=== PATIENT | female | born 1980 ===

== ENCOUNTER 2017-02-01 07:23 | Inpatient (IN) ==
[2017-02-01] MEDS: LACTATED RINGERS 1,000 ML IV SCH ×2 (09:30→10:46)
[2017-02-01] MEDS ORDERED: ONDANSETRON 4 MG/2 ML VIAL IV PRN ×2 (09:32→20:23)
[2017-02-01] MEDS ORDERED: fentaNYL 2 MCG/ROPIV 0.2% EPID 150 ML EPIDURAL SCH (09:32)
[2017-02-01] MEDS ORDERED: LACTATED RINGERS 250 ML IV ONE (09:32)
[2017-02-01] MEDS ORDERED: FAMOTIDINE 20 MG/2 ML VIAL IV ONE (09:32)
[2017-02-01] MEDS ORDERED: diphenhydrAMINE 50 MG/1 ML VIAL IV PRN ×2 (09:32)
[2017-02-01] MEDS ORDERED: ePHEDrine 50 MG/ML AMP IV PRN ×2 (09:32)
[2017-02-01] MEDS ORDERED: PROMETHAZINE 25 MG/1 ML VIAL IM ONE (09:32)
[2017-02-01] MEDS ORDERED: CITRIC ACID/SODIUM CITRATE 30 ML UDCUP PO ONE (09:32)
[2017-02-01] MEDS ORDERED: ONDANSETRON 4 MG/2 ML VIAL IV ONE (09:32)
[2017-02-01] MEDS ORDERED: hydrOXYzine HCL 25 MG/1 ML VIAL IM PRN (09:32)
[2017-02-01 09:58] LABS: Basophils % 0.5 % (0.0-0.8); Eosinophils # 0.2 10*3/uL (0.0-0.87); Eosinophils % 2.3 % (0.00-10.9); Hematocrit 30.6 VOL% (35.7-47.0); Hemoglobin 10.7 GM/DL (12.0-16.0); Immature Granulocytes % 0.5 %; Immature Granulocytes Absolute 0.04 #; Lymphocytes # 1.7 10*3/uL (1.4-4.0); Lymphocytes % 22.4 % (21.3-54.2); Mean Corpuscular Hemoglobin 31 PG (27-34); Mean Corpuscular Volume 89.2 FL (87-102); Monocytes # 0.5 10*3/uL (0.11-0.8); Monocytes % 6.9 % (1.7-12.7); Neutrophils % 67.4 % (38.7-73.9); Platelet Count 194 T/CUMM (130-400); Red Blood Count 3.43 MC/CUMM (3.8-5.5); Red Cell Distribution Width 14.5 % (9.3-17.3); White Blood Count 7.4 T/CUMM (4-12)
[2017-02-01] MEDS ORDERED: AMPICILLIN INJ 2,000 MG in SODIUM CHLORIDE 0.9% 100 ML IV ONE (10:00)
[2017-02-01] MEDS ORDERED: OXYTOCIN/LR 20 UNIT/1,000 ML BAG IV SCH (10:00)
[2017-02-01 10:24] LABS: Alanine Aminotransferase 24 U/L (13-56); Albumin 2.4 G/DL (3.4-5.0); Alkaline Phosphatase 176 U/L (45-117); Aspartate Amino Transferase 42 U/L (0-37); Bilirubin,Total < 0.39 MG/DL (0.2-1.0); Blood Urea Nitrogen 12 MG/DL (7-18); Calcium 8.3 MG/DL (8.5-10.1); Glucose 155 MG/DL (74-106); Osmolality,Calculated 277.7 MOS/KG (273-304); Potassium 3.7 MMOL/L (3.5-5.1); Sodium 138 MMOL/L (136-145); Total Protein 6.5 G/DL (6.4-8.3)
[2017-02-01] MEDS ORDERED: AMPICILLIN 2,000 MG VIAL ONE (10:42)
[2017-02-01] MEDS ORDERED: SODIUM CHLORIDE 0.9% 100 ML IV ONE (10:43)
--- NOTE | 2017-02-01 14:18 | OB/GYN History & Physical ---
History of Present Illness Chief complaint: In for complaints of active labor History of present illness: Ms. Lopez is a 36 year old female who is a 2 para 1 living 1 TOMAS is for estimated gestational age of 38 and 2 weeks who presents for complaints of regular uterine contractions. Upon admission the patient was examined and she was 5-6 cm dilated with bulging POW. In light of these findings patient was admitted for management of active labor. The risk and benefits were thoroughly discussed with this patient and significant other, plan of care was discussed with Dr. Cantu and all parties are in agreement with plan. The patient received her care through the [facility] and the [facility], she received routine care throughout. Her course was complicated by diabetes type 2 otherwise she had an uneventful . labs: The patient is O+, RPR is nonreactive, rubella is immune, Pap smear is within normal limits, GC chlamydia cultures negative, hepatitis B negative, HIV negative, GBS culture negative. Home Medications Medication Instructions Recorded Confirmed Type No122/Iron/Folic Acid 1 tablet PO DAILY 12/29/16 02/01/17 History [ Multi Tablet] Insulin NPH [HumuLIN N] 10 unit SUBCUT BID 01/04/17 02/01/17 History Allergies Allergy/AdvReac Type Severity Reaction Status Date / Time No Known Allergies Allergy Verified 01/09/17 16:43 12 point system: reviewed and no additional remarkable complaints except as stated Medical,Surgical,& Family Hx - Medical History Cardio: History of: Hypertension (DAD), Valvular Heart Disease (DAD), Cardiovascular Problems (DAD) Endocrine: History of: Diabetes Mellitus (IDDM) (MOM,DAD) Renal: History of: Renal Problems (DAD) Reproductive: No history of: Ectopic , Complication - Surgical History Thoracic Surgeries: Patient denies;: Kidney (Renal Surgery), Lithotripsy, Nephrectomy, Organ Transplant, Lobectomy Reproductive Surgeries: Surgical HX of;: Gynecologic Surgery (Diagnostic lap for ovarian cyst) Patient denies;: Section, Cystoscopy, Genitourinary Surgery - Family History Family History: Reports;: Family Diabetes, Family Heart Disease, Family Hypertension, Family Stroke Denies;: Family Anesthesia Reaction, Family Cancer, Family Hematology, Family Psychiatric Problems, Additional Family History - Social History Smoking Status: Former smoker Frequency of Alcohol Use: None Type of Drug Use: None Marital Status: Single Lives With:: Significant Other Functional capacity: independent ambulation 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 - Constitutional Vitals: Vital Signs Temp Pulse Resp BP Pulse Ox 02/01/17 12:00 97.7 F 02/01/17 09:32 97.5 F L 87 24 118/65 97 General appearance: mild distress - Antepartum / Post Post Exam Cervix - Dilatation: 5-6 cm Effacement: 60% Station: -2 Rupture: Intact Presentation: Vertex Heart Rate: 150 Breast: bilateral: normal Abdomen obstetrics: Present: bowel sounds normal Vagina: Present: normal moisture Uterus exam: Present: enlarged Anus/Rectum: Present: normal perianal skin - Head Head exam: Present: normal inspection - Respiratory Respiratory exam: Present: clear to auscultation bilaterally - Cardiovascular Cardiovascular exam: Present: regular rate and rhythm - GI/Abdominal GI/Abdominal exam: Present: normal bowel sounds, soft - Extremities Exam Extremities exam: Present: normal inspection - Back Exam Back exam: Present: normal inspection - Neurological Exam Neurological exam: Present: alert, oriented X3 - Psychiatric Psychiatric exam: Present: normal affect, normal mood - Skin Skin exam: Present: normal color, warm Assessment and Plan (1) Term Status: Acute Assessment and plan: Admit IV fluids IV Pitocin per protocol Artificial rupture membranes when appropriate Internal monitors if indicated Epidural anesthesia if desired Anticipate Current Visit: Yes (2) Active labor at term Status: Acute Current Visit: Yes Results - Labs CBC & BMP: 02/01/17 09:46 02/01/17 09:46
[2017-02-01] MEDS ORDERED: AMPICILLIN INJ 1,000 MG in SODIUM CHLORIDE 0.9% 100 ML IV SCH (14:46)
[2017-02-01] MEDS ORDERED: miSOPROStol 200 MCG TABLET ONE (16:00)
[2017-02-01] MEDS ORDERED: OXYTOCIN/LR 30 UNIT/1,000 ML BAG IV ONE (16:18)
[2017-02-01 16:31] LABS: Cord Venous Blood HCO3 23.4 MMOL/L; Cord Venous Blood PCO2 45.6 MMHG; Cord Venous Blood PO2 33.6
[2017-02-01 16:34] LABS: Cord Arterial Blood HCO3 21.6 MMOL/L
[2017-02-01] MEDS ORDERED: BISACODYL 10 MG SUPP RECTAL PRN (18:22)
[2017-02-01] MEDS ORDERED: IBUPROFEN 800 MG TABLET PO PRN (18:22)
[2017-02-01] MEDS ORDERED: DIPH/TET/ACEL PERT BOOSTER VACCINE 0.5 ML VIAL IM ONE (18:22)
[2017-02-01] MEDS ORDERED: OXYTOCIN/LR 20 UNIT/1,000 ML BAG IV ONE (18:22)
[2017-02-01] MEDS ORDERED: HYDROCORTISONE 2.5% RECTAL CREAM 30 GM TUBE TOP PRN (18:22)
[2017-02-01] MEDS ORDERED: ACETAMINOPHEN 325 MG TABLET PO PRN (18:22)
[2017-02-01] MEDS ORDERED: BENZOCAINE 20%/MENTHOL 0.5% SPRAY 56 GM CAN TOP PRN (18:22)
[2017-02-01] MEDS ORDERED: WITCH HAZEL PADS 100/JAR TOP PRN (18:22)
[2017-02-01] MEDS ORDERED: oxyCODONE/ACETAMINOPHEN 5-325 MG TABLET PO PRN ×2 (18:22)
[2017-02-01] MEDS ORDERED: LANOLIN 50% CREAM 0.3 OZ TUBE TOP PRN (18:22)
[2017-02-01] MEDS ORDERED: RHO(D) IMMUNE GLOBULIN 300 MCG SYRINGE IM ONE (18:22)
[2017-02-01] MEDS ORDERED: MEASLES/MUMPS/RUBELLA VACCINE 0.5 ML VIAL SUBCUT ONE (18:22)
[2017-02-01] MEDS ORDERED: ACETAMINOPHEN/CODEINE 300-30 MG TABLET PO PRN (18:24)
--- NOTE | 2017-02-01 18:27 | Event Note ---
HPI: Ms. Lopez presented to labor department in active labor. She she was 38 weeks and 2 days. The risk and benefits were thoroughly discussed with the patient and significant other and plan of care was discussed with Dr. Cantu and all parties were in agreement plan. Stage I: The patient was admitted to receive IV fluids and IV Pitocin per protocol. She received an epidural after she was comfortable artificial rupture membranes was performed with clear fluid noted. The patient progressed in labor with a CAT 1 tracing. Maternal vital signs remain within normal limits. The patient had an uneventful course of labor. Stage II: The patient was complete and complained of pressure and desire to push. She pushed for approximately 15 minutes after which time the infant's head was delivered. The mouth and nose were suctioned on the perineum. The remainder of the infant was delivered at 1607 a viable male was noted. Apgars were 9 at 1 minute and 9 at 5 minutes. weight was 9 pounds and 13 ounces. A cord pH was obtained and sent to the lab. The infant was placed on the mom's abdomen for skin to skin bonding. Stage III: A spontaneous delivery of a Pathak placenta with a three-vessel cord noted. The placenta was further examined. Grossly intact. The vagina and cervix was inspected with a first-degree perineal laceration noted which was repaired. Epidural anesthesia remain in effect on repair. Estimated blood loss was approximately 250 cc. At the time of dictation mother and baby are both in stable condition.
[2017-02-01] MEDS ORDERED: DEXTROSE 50% 25 GM/50 ML VIAL IV PRN (18:44)
[2017-02-01] MEDS ORDERED: GLUCAGON 1 MG VIAL IM PRN (18:44)
--- NOTE | 2017-02-01 21:10 | Anesthesia Post-Op ---
Anesthesia Post OP - Post Ansesthetic Evaluation Patient seen in post op: Yes Resp: within normal limits CV: within normal limits Mental: within normal limits Temp: within normal limits [id number]: within normal limits Nausea and Vomiting: within normal limits Pain: within normal limits
[2017-02-01] MEDS: DOCUSATE SODIUM 100 MG CAPSULE PO SCH (21:30)
[2017-02-02 06:42] LABS: Basophils % 0.2 % (0.0-0.8); Eosinophils # 0.1 10*3/uL (0.0-0.87); Hemoglobin 8.9 GM/DL (12.0-16.0); Immature Granulocytes % 0.5 %; Immature Granulocytes Absolute 0.06 #; Lymphocytes # 2.4 10*3/uL (1.4-4.0); Lymphocytes % 19.3 % (21.3-54.2); Mean Corpuscular HGB Conc 34.2 GM/DL (32-36); Mean Corpuscular Hemoglobin 31 PG (27-34); Mean Platelet Volume 12.2 FL (9.6-12.0); Monocytes # 0.8 10*3/uL (0.11-0.8); Monocytes % 6.5 % (1.7-12.7); Neutrophils # 9.1 10*3/uL (1.4-7.4); Neutrophils % 72.5 % (38.7-73.9); Platelet Count 162 T/CUMM (130-400); Red Blood Count 2.92 MC/CUMM (3.8-5.5); Red Cell Distribution Width 14.4 % (9.3-17.3); White Blood Count 12.6 T/CUMM (4-12)
[2017-02-02 07:18] LABS: Hypochromasia Slight; Lymphocytes 11 % (20-55); Platelet Estimate Adequate; Polychromasia Slight; Segmented Neutrophils 87 % (50-85); Total Cells Counted 100
[2017-02-02] MEDS: FERROUS SULFATE 325 MG TABLET PO SCH ×3 (08:46→21:59)
[2017-02-02] MEDS: DOCUSATE SODIUM 100 MG CAPSULE PO SCH ×2 (08:46→21:59)
--- NOTE | 2017-02-02 12:50 | OB/GYN Progress Note ---
Assessment and Plan (1) Term Status: Acute Assessment and plan: Admit IV fluids IV Pitocin per protocol Artificial rupture membranes when appropriate Internal monitors if indicated Epidural anesthesia if desired Anticipate Current Visit: Yes (2) Active labor at term Status: Acute Current Visit: Yes (3) Vaginal delivery Status: Acute Assessment and plan: Initiate routine orders. 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 Bonding well with infant Exam LADLE POURER - Constitutional Vitals: Vital Signs Temp Pulse Resp BP Pulse Ox 02/02/17 07:50 97.9 F 69 20 129/74 98 02/02/17 03:55 97.4 F L 70 20 121/70 96 02/02/17 00:15 98.1 F 77 20 132/82 96 02/01/17 21:30 99.3 F 80 20 126/78 96 02/01/17 20:28 98.7 F 79 20 129/76 97 02/01/17 19:30 98.9 F 82 20 139/74 97 02/01/17 18:56 78 20 133/79 99 02/01/17 18:30 98 F 75 20 140/79 99 02/01/17 16:00 97.8 F General appearance: no acute distress - Antepartum / Post Post Exam Breast: bilateral: normal Abdomen obstetrics: Present: bowel sounds normal Vagina: Present: normal moisture, discharge (Light lochia rubra) Uterus exam: Present: enlarged Anus/Rectum: Present: normal perianal skin - Respiratory Respiratory exam: Present: clear to auscultation bilaterally - Cardiovascular Cardiovascular exam: Present: regular rate and rhythm - GI/Abdominal GI/Abdominal exam: Present: normal bowel sounds, soft - Extremities Exam Extremities exam: Present: normal inspection - Back Exam Back exam: Present: normal inspection - Neurological Exam Neurological exam: Present: alert, oriented X3 - Psychiatric Psychiatric exam: Present: normal affect, normal mood - Skin Skin exam: Present: normal color, warm Results - Labs CBC & BMP: 02/02/17 06:18 02/01/17 09:46
[2017-02-03 07:55] VITALS: BP 110/69
[2017-02-03] MEDS: DOCUSATE SODIUM 100 MG CAPSULE PO SCH (09:27)
[2017-02-03] MEDS: FERROUS SULFATE 325 MG TABLET PO SCH (09:27)
--- NOTE | 2017-02-03 10:10 | Discharge Summary ---
Hospital Course - Hospital Course Hospital Course: Ms Lopez is a 36-year-old female who presented to the labor department in active labor. She subsequently delivered a viable with no complications. She has followed a normal course and she is going well. Her blood sugars are stable. Her vital signs and lab values are stable. She is bonding well with her infant. Her bleeding is minimal with no odor. She denies any discomfort in her legs. Her fundus is firm and midline. She will be discharged home prescriptions for pain and a follow-up appointment in our office. Diagnosis - Discharge Diagnosis (1) Term Status: Acute (2) Active labor at term Status: Acute (3) Vaginal delivery Status: Acute Specialty Discharge - Follow Up or Referrals Follow up with: Lolis Cantu MD [Physician] - (6 weeks ) Discharge Plan - Discharge Data Disposition: Disch To Home/Self Care Condition at Discharge: Stable Discharge Diet: advance to your usual diet, diabetic diet Activity: resume usual activities as tolerated Hygiene: may shower Weight Bearing at Discharge: weight bear as tolerated Driving: no restrictions Contact your physician if you experience:: fever over 101, pain uncontrolled by pain medications - Discharge Medications New Acetamin/Codeine 300-30 Tab [Tylenol/Codeine #3] 2 tablet PO Q4H PRN #30 tablet PRN Reason: Pain Mild (1-3) Ibuprofen Tab [Motrin Tab] 800 mg PO Q6H PRN #30 tablet PRN Reason: Pain Moderate (4-7) Ferrous Sulfate Tab [Feosol Original Tab] 325 mg PO BID #60 tablet Continue Insulin NPH [HumuLIN N] 10 unit SUBCUT BID No Action No122/Iron/Folic Acid [ Multi Tablet] 1 tablet PO DAILY - Follow Up or Referral Follow Up: Lolis Cantu MD [Physician] - (6 weeks ) - Forms/Instructions Instructions: Perineal Care (DC), Vaginal Delivery (DC), Bleeding (DC) Exam - Constitutional Vitals: Period Temp Pulse Resp BP Sys/[place] Pulse Ox Last 24 Hr 97.3 F-98.5 F 56-73 18-20 103-148/52-86 96-99 General appearance: no acute distress - Head Head exam: Present: normal inspection - ENT ENT exam: Present: normal exam - Neck Neck exam: Present: normal inspection - Respiratory Respiratory exam: Present: clear to auscultation bilaterally - Cardiovascular Cardiovascular exam: Present: regular rate and rhythm - GI/Abdominal GI/Abdominal exam: Present: normal bowel sounds, soft - Extremities Exam Extremities exam: Present: normal inspection - Back Exam Back exam: Present: normal inspection - Neurological Exam Neurological exam: Present: alert, oriented X3 - Psychiatric Psychiatric exam: Present: normal affect, normal mood - Skin Skin exam: Present: normal color, warm Discharge Results Labs on day of discharge: Labs from last 24 hours 02/02/17 02/02/17 17:06 12:10 POC Glucose 100 92 DS: Provider Date of admission: 02/01/17 09:08 Primary care physician: Clint Bermeo MD Attending physician on admission: Lolis Cantu MD Consults: 02/01/17 09:32 Consult to Anesthesiology [CONS] Routine Consulting Provider: Reason for Anesthesiology: Epidural Consult Comment: Epidural for pain managment 02/01/17 18:22 Consult to Office Service Coordinator [CONS] Routine Consult Office Service Coordinator: Breast Feeding Discharging clinician: Ledy Brito CNM Expected date of discharge: 02/03/17
== END 2017-02-03 14:05 | disposition home or self-care (01) | DRG 560 ==
LOC: N.LDOUT 07:23 → N.LD 07:25 → N.OB 18:17
PROVIDERS: ADMIT Obstetrics & Gynecology; ATTEND Obstetrics & Gynecology